=== PATIENT | female | born 1985 | race African-American/Black ===

== ENCOUNTER 2016-08-28 15:02 | Emergency (ER) | payer MEDICARE, MEDICAID ==
[~2016-08-28 15:02] MED LIST: ACTO; AMBIEN5 MG PO; ASPIR 8181 M1 PO; ASPIRIN325 MG PO; ATARAX10 MG PO; ATARAX50 MG PO; ATIVAN1 MG PO; AZATHIOPRINE50 MG; AZATHIOPRINE50 MG PO; BACTRIM DS TABL1 TAB PO; CALCITRATE CAPL1 TAB PO; CALCIUM 600 +1 EAC2 PO; CARAFATE1 G/10 ML PO; CEPHALEXIN500 MG PO; CETAPHIL CLEAN TP; CETAPHIL CREAM454 GM TP; CETIRIZINE HCL10 M1 PO; CLEOCIN HCL300 MG PO; COLCHICINE0.6 MG PO; CYCLOBENZAPRINE5 M1 PO; DESYREL100 MG/TAB PO; DIFLUCAN100 MG PO; DIFLUCAN150 MG PO; ELIMITE60 GM TP; FERROUS SU325 ( 65 ) PO; FOSAMAX70 MG PO; H PO; HYDROCHLOROQUINE PO; HYDROXYCHLOROQ200 M1 PO; IMURAN50 MG; LASIX40 MG PO; LEXAPRO10 MG PO; LEXAPRO20 MG PO; LISINOPRIL20 MG PO; LORTAB 5-500 T1 EACH PO; MIRALAX17 G1 PO; MIRALAX17 GM PO; MULTI VITAMIN1 EACH PO; MULTIVITAMIN1 TAB PO; NAPROSYN500 MG PO; NAPROXEN500 MG PO; NO HOME MEDS; NORCO 5-325 TA1 EACH PO; NORCO 5/325 TAB1 TAB PO; NORCO 5/3251 TA1 PO; NORCO 5/3251 TA2 NG; NORCO 5/3251 TAB PO; NORVASC5 MG PO; NYSTATIN ORAL S60 M1 PO; OMEPRAZOLE20 MG PO; ORAJEL MM; PERCOCET 10/31 UDTAB PO; PHENTERMINE HCL15 M1 PO; PHENTERMINE HCL15 MG PO; PLAQUENIL200 MG; PLAQUENIL200 MG PO; PREDNISONE1 MG; PREDNISONE2.5 MG PO; PREDNISONE20 M1 PO; PREDNISONE20 MG; PREDNISONE20 MG PO; PREDNISONE5 M1 PO; PREDNISONE5 MG; PREDNISONE5 MG PO; PRENATAL CAPLE1 EACH PO; PRILOSEC20 MG PO; PROPRANOLOL HCL10 MG PO; QSYMIA PO; RESTORIL30 MG PO; SENOKOT-S TABL1 EACH PO; SERTRALINE HCL100 M1 PO; SKELAXIN800 M1 PO; TEMAZEPAM30 MG PO; TRIAMCINOLONE A15 GM TP; TYLENOL #31 TA1 PO; TYLENOL325 MG PO; ULTRAM50 MG PO; VITAMIN D400 UNI1 PO; VOLTAREN100 G1 TOP; ZOFRAN8 MG PO; ZYRTEC10 MG PO; [UNRECOGNIZED DRUG - OTHER] TOP
[2016-08-28] MEDS ORDERED: PREDNISONE10 M1 PO (15:15)
[2016-08-28] MEDS ORDERED: PREDNISONE20 M1 PO (15:49)
[2016-08-28] MEDS ORDERED: VIBRAMYCIN100 M1 PO (15:49)
[2016-08-28] MEDS ORDERED: KEFLEX500 M4 PO (15:54)
== END 2016-08-28 15:55 ==
LOC: EDMED 15:02
DX: R21 Rash and other nonspecific skin eruption (principal); M32.9 Systemic lupus erythematosus, unspecified; N19 Unspecified kidney failure; Z79.899 Other long term (current) drug therapy

== ENCOUNTER 2016-09-01 18:28 | Emergency (ER) | payer MEDICARE, MEDICAID ==
[~2016-09-01 18:28] MED LIST changes: +KEFLEX500 M4 PO; +PREDNISONE10 M1 PO; +VIBRAMYCIN100 M1 PO
== END 2016-09-01 21:04 | disposition left against medical advice (07) ==
LOC: EDMED 18:28
DX: R21 Rash and other nonspecific skin eruption (principal); Z53.21 Procedure and treatment not carried out due to patient leaving prior to being seen by health care provider